=== PATIENT | male | born 1970 | race Two or more races ===

== ENCOUNTER 2016-11-23 22:44 | Emergency (ER) | payer MEDICARE ==
[~2016-11-23] VITALS: Ht 177.8 cm; Wt 86.2 kg
[2016-11-24 02:33] VITALS: BP 139/81
== END 2016-11-24 02:38 | disposition home or self-care (01) ==
LOC: ER 22:48
DX: H01.01 Ulcerative blepharitis (principal); H01.011 Ulcerative blepharitis right upper eyelid; S01.111A Laceration without foreign body of right eyelid and periocular area, initial encounter; E11.9 Type 2 diabetes mellitus without complications; I10 Essential (primary) hypertension; E07.9 Disorder of thyroid, unspecified; F17.210 Nicotine dependence, cigarettes, uncomplicated; W22.8XXA Striking against or struck by other objects, initial encounter; Y93.89 Activity, other specified; Y99.8 Other external cause status; Y92.89 Other specified places as the place of occurrence of the external cause
CPT/HCPCS: 70486; 82962; 94761